=== PATIENT | female | born 1960 | race Hispanic/Latino ===

== ENCOUNTER → 2019-09-20 | Day surgery (SDC) | payer MEDICARE, OTHER ==
[2019-09-17 13:15] LABS: BASOPHILS % 0.8 % (0.0-1.0); EOSINOPHILS # (AUTO) 0.1 (0.0-0.4); EOSINOPHILS % 2.4 % (0.0-6.0); HEMATOCRIT 34.6 % (34.2-44.1); HEMOGLOBIN 11.5 g/dL (12.0-16.0); LYMPHOCYTES # (AUTO) 1.2 (1.0-3.2); MEAN CORPUSCULAR HEMOGLOBIN 29.7 pg (28-32); MEAN CORPUSCULAR HGB CONC 33.2 g/dL (31-35); MEAN CORPUSCULAR VOLUME 89.4 fL (81-99); MONOCYTES # (AUTO) 0.4 (0.2-0.8); MONOCYTES % 8.1 % (4.4-11.3); NEUTROPHILS # (AUTO) 3.1 (2.1-6.9); NEUTROPHILS % 63.3 % (38.7-80.0); PLATELET COUNT 262 x10e3/uL (140-360); RED BLOOD COUNT 3.87 x10e6/uL (3.6-5.1); RED CELL DISTRIBUTION WIDTH 11.9 % (11.7-14.4)
[2019-09-17 13:31] LABS: INR 0.88; PROTHROMBIN TIME 12.5 seconds (11.9-14.5)
[2019-09-17 13:32] LABS: PARTIAL THROMBOPLASTIN TIME 24.4 seconds (23.8-35.5)
[2019-09-17 13:45] LABS: ANION GAP 13.9 mmol/L (8-16); CALCIUM 8.7 mg/dL (8.4-10.2); CREATININE, SERUM 1.16 mg/dL (0.57-1.11); POTASSIUM 4.9 mmol/L (3.5-5.1)
[~2019-09-20] MED LIST: ACETAMINOPHEN 1000 MG/100 ML IV ONE; ALENDRONATE SOD70 MG PO; AMITRIPTYLINE H25 MG PO; BIOTIN5000 MC1 PO; CALTRATE 600 W1 EACH PO; CEFAZOLIN SOD 1 GM/NS 50ML 100 ML IV ONE; DEXAMETHASONE SOD PHOS INJ 4 MG/ML VIAL ONE; DICLOFENAC SOD100 GM TOP; ENALAPRIL MALE2.5 MG PO; ENALAPRIL PO; EPHEDRINE SULFATE INJ 50 MG/ML VIAL ONE; EPINEPHRINE 1 MG/ML 30ML VIAL ONE; ETOMIDATE 2 MG/ML 10 ML INJ IV ONE; FEOSOL325 MG PO; GLYCOPYRROLATE INJ 0.2 MG/ML VIAL ONE; HUMALOG100 UNIT/3 SC; INVOKANA PO; KETOROLAC TROMETHAMINE 30 MG/ML VIAL ONE; LANTUS100 UNITS/ SQ; LEVOCETIRIZINE D5 MG PO; LEVOTHYROXINE50 MCG PO; LIDOCAINE HCL 2% LOCAL INJ 5 ML SDV VIAL INJ ONE; MECLIZINE HCL12.5 MG PO; METFORMIN HCL500 MG PO; METFORMIN PO; MONTELUKAST SOD10 MG PO; NEOSTIGMINE 1 MG/ML 10ML VIAL ONE; NORCO 10-325 T1 EACH PO; NORCO 5-325 TA1 EACH PO; OMEGA 3 PO; ONDANSETRON HCL INJ 2MG/ML 2ML 2 MG/ML VIAL ONE; PANTOPRAZOLE SO20 MG PO; PLAQUENIL200 MG PO; PLAVIX75 MG PO; PROPOFOL IV EMULSION 10 MG/ML 20 ML VIAL ONE; RESTASIS1 EACH OP; ROCURONIUM BROMIDE 10 MG/ML 5ML VIAL IV ONE; ROZEREM8 MG PO; SEVOFLURANE INHAL SOLN 250 ML PEN BTL ONE; SIMVASTATIN PO; SIMVASTATIN40 MG PO; SPIRONOLACTONE25 MG PO; SYNTHROID PO; VENLAFAXINE HCL75 MG PO; VESICARE10 MG PO; VIT B12 PO; VIT D PO
[2019-09-20 09:44] VITALS: BP 110/74
--- NOTE | 2019-09-20 14:02 | Operative Report ---
DATE OF PROCEDURE: 09/20/2019 SURGEON: NATASHA FRAZIER MD LOCATION: Place of surgery is [facility]. HISTORY: Ms. 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 The patient wished to forgo any further conservative management and proceed along with a diagnostic arthroscopy of the right shoulder. The risks and benefits of surgery have been made known to her, consisting but not limited to following; infection, blood loss, nerve, blood vessel or tendon injury, DVT, ongoing pain and stiffness. Informed consent was obtained. The risks and benefits were discussed with the patient in the preop holding area again. The right shoulder was marked. The patient received a regional block per Anesthesia and then brought back to the operative suite. Time-out was taken for Ms. Charo Martinez for a right shoulder arthroscopy. All were in agreement including nursing staff, anesthesia, and myself. The patient was then given a successful general intubation anesthetic and then transferred over to the operative table. The patient was placed in the beach chair position allowing full exposure of the right shoulder and upper extremity. The right shoulder was then sterilely prepped and draped in the usual standard fashion. The shoulder was inflated with 20-30 mL of sterile saline. A 15-Bard Ld blade was used to make the posterior portal approach. A blunt trocar was inserted. Upon immediate examination of the anterior compartment, the patient has significant type 2 labral tear with marked fraying of the edges. The labrum was completely detached from the glenoid from the 1 down to the 5 to 6 o'clock position. Two anterior working portals were made and two orange trocars were inserted. The patient's liver edges were debrided. The patient also had marked amount of villonodular synovitis, specifically around the labrum and the biceps tendon. An arthroscopic synovectomy was carried out removing the villonodular synovitis. This was done through the anterior as well as the posterior portal, removing the synovitis along the posterior compartment as well as a lateral portal was made to complete the synovectomy of the shoulder joint. Attention was then turned back to the labral tear. The glenoid bed was abraded with a hand rasp. Upon which time, 3 Arthrex labral sutures were passed through, one at the 1 o'clock position, the 2nd one at 3 o'clock and the 3rd one around 5 o'clock position. A protective drill guide was then placed and then drill holes were drilled for preparation for the knotless anchors. The knotless anchors were then reattached to lay back down respectively at the 1, 3, and lastly 5 o'clock position. The labral bumper was reestablished. Upon range of motion testing, the shoulder was found to be stable. The posterior labrum was found to be intact, once again the synovectomy being completed of the posterior compartment previously. Attention was then turned to the rotator cuff tear. The patient had a complete tear with mild retraction close to the bony insertion. I went ahead and abraded the tear as well. Attention was then turned to the subacromial space. The patient had marked impingement with AC arthrosis of the joint as well. Upon which time, through both the posterior and lateral portals, an arthroscopic subacromial decompression i.e., acromioplasty was completed using the 4.0 bur and shaver. Attention was then redirected to the distal clavicle and the degenerative AC meniscus. An arthroscopic distal clavicle resection i.e., Fabian procedure was carried out using the same 4.0 bur and shaver removing the degenerative AC meniscus as well. Copious irrigation was carried of the entire joint. There was significant marked improvement of the subacromial space. Attention was then redirected back to the tear itself. The tear was localized and a small incision was made directly over the tear. A blunt dissection was carried down through the part of deltoid. Anterior and lateral deltoid were resected and tagged for later repair. The rotator cuff tear was identified. Again, it was close to the bony insertion with mild retraction. I went ahead and abraded the footprint of the original insertion with a hand rasp. Copious irrigation carried out. Upon which time, two Mitek 6.5 Healix anchors were deployed and the two pairs of sutures were passed through the rotator cuff tendon. While maintaining appropriate abduction, the rotator cuff tear was then tied back down to the ridge of bony insertion and the repair was found to be very stable. Upon passive range of motion of the shoulder, the repair found to be very stable. There was no instability of the shoulder joint, glenohumeral joint throughout all range of motion. The shoulder was then irrigated out. The anterolateral deltoid fibers were reapproximated back to the bony insertion with 1 Ethibond, deep layer was closed using 1 Ethibond, 0 Vicryl, and 2-0 Vicryl. Skin was reapproximated with cherise and the patient is placed in Xeroform compressive dressing in conjunction with a shoulder abduction immobilizer and then successfully extubated and transferred to PACU in stable condition. PREOPERATIVE DIAGNOSES: 1. Right shoulder labral tear. 2. Right shoulder rotator cuff tear. 3. Right shoulder impingement, AC arthrosis. POSTOPERATIVE DIAGNOSES: 1. Right shoulder type 2 labral tear. 2. A complete rotator cuff tear of the right shoulder to include the supraspinatus and infraspinatus. 3. Villonodular synovitis of the right shoulder. 4. Right shoulder impingement, AC arthrosis. PROCEDURES: 1. Diagnostic arthroscopy of the right shoulder with a type 2 labral repair with 2 Arthrex 2.9 labral anchors. 2. Arthroscopic subacromial decompression i.e., acromioplasty. 3. Arthroscopic distal clavicle resection i.e., Fabian procedure. 4. Arthroscopic synovectomy for villonodular synovitis. 5. A mini open rotator cuff repair of the right shoulder with the use of 2 Mitek Healix anchors. ANESTHESIA: Regional block and general intubation anesthetic. ESTIMATED BLOOD LOSS: Less than 10 mL. SPECIMENS: Bones, soft tissues, and villonodular synovitis. COMPLICATIONS: None. CONDITION: Stable to PACU. The patient was seen in PACU. Dressings were clean and dry. Capillary refills were brisk. The patient's pain is well controlled. The intraoperative findings were reviewed and discussed with the patient's daughter. Discharge and wound care instructions were given to her. The patient is to be maintained in a shoulder immobilizer at all times, only removing for bathing or showering. She is asked to use a large roll bath towel when she has taken shower to maintain the shoulder at abduction. She is to continue aggressive icing. She is discharged home with Keflex as well as Mesick. The patient was asked to follow up in the [facility]opedic [facility] in 12-14 days for wound check and staple removal. Again, the patient is seen in PACU. Dressing clean and dry. Capillary refills are brisk. Pain is well controlled. Discharge wound care instructions were also discussed with nursing staff. MD ELHAM STOCK/ROXANN /[id number]
== END | disposition home or self-care (01) ==
LOC: OR 05:10
PROVIDERS: ATTEND Orthopaedic Surgery
DX: S43.421A Sprain of right rotator cuff capsule, initial encounter (principal); S43.431A Superior glenoid labrum lesion of right shoulder, initial encounter; M75.51 Bursitis of right shoulder; M19.011 Primary osteoarthritis, right shoulder; M43.02 Spondylolysis, cervical region; M50.320 Other cervical disc degeneration, mid-cervical region, unspecified level; M25.531 Pain in right wrist; E66.09 Other obesity due to excess calories; E11.42 Type 2 diabetes mellitus with diabetic polyneuropathy; R06.02 Shortness of breath; I10 Essential (primary) hypertension; E78.5 Hyperlipidemia, unspecified; K21.9 Gastro-esophageal reflux disease without esophagitis; X58.XXXA Exposure to other specified factors, initial encounter; Z01.810 Encounter for preprocedural cardiovascular examination; Z01.812 Encounter for preprocedural laboratory examination; Z11.59 Encounter for screening for other viral diseases; Z79.02 Long term (current) use of antithrombotics/antiplatelets; Z79.84 Long term (current) use of oral hypoglycemic drugs; Z79.4 Long term (current) use of insulin; Z68.31 Body mass index [BMI] 31.0-31.9, adult
CPT/HCPCS: 23410; 29807; 29824; 36415 ×2; 80048; 82948; 85025; 85610; 85730; 93005; C1713 ×2; J0131; J0690; J1100; J1885; J2001; J2405; J2704; J2710; U0002

== ENCOUNTER → 2020-12-30 | Outpatient (CLI) | payer MEDICARE ==
[~2020-12-30] MED LIST changes: -ACETAMINOPHEN 1000 MG/100 ML IV ONE; -CEFAZOLIN SOD 1 GM/NS 50ML 100 ML IV ONE; -DEXAMETHASONE SOD PHOS INJ 4 MG/ML VIAL ONE; -EPHEDRINE SULFATE INJ 50 MG/ML VIAL ONE; -EPINEPHRINE 1 MG/ML 30ML VIAL ONE; -ETOMIDATE 2 MG/ML 10 ML INJ IV ONE; -GLYCOPYRROLATE INJ 0.2 MG/ML VIAL ONE; -KETOROLAC TROMETHAMINE 30 MG/ML VIAL ONE; -LIDOCAINE HCL 2% LOCAL INJ 5 ML SDV VIAL INJ ONE; -NEOSTIGMINE 1 MG/ML 10ML VIAL ONE; -ONDANSETRON HCL INJ 2MG/ML 2ML 2 MG/ML VIAL ONE; -PROPOFOL IV EMULSION 10 MG/ML 20 ML VIAL ONE; -ROCURONIUM BROMIDE 10 MG/ML 5ML VIAL IV ONE; -SEVOFLURANE INHAL SOLN 250 ML PEN BTL ONE
== END ==
LOC: MRI 10:56
PROVIDERS: ATTEND Podiatrist Foot & Ankle Surgery
DX: M76.72 Peroneal tendinitis, left leg (principal)

== ENCOUNTER 2023-10-03 10:27 | Inpatient (IN) | payer MEDICARE, OTHER ==
[2023-09-28 11:53] LABS: BASOPHILS % 0.7 % (0.0-1.0); EOSINOPHILS # (AUTO) 0.3 (0.0-0.4); EOSINOPHILS % 4.1 % (0.0-6.0); HEMATOCRIT 36.2 % (34.2-44.1); HEMOGLOBIN 12.3 g/dL (12.0-16.0); LYMPHOCYTES # (AUTO) 2.1 (1.0-3.2); LYMPHOCYTES % 34.3 % (18.0-39.1); MEAN CORPUSCULAR HEMOGLOBIN 30.6 pg (28-32); MONOCYTES # (AUTO) 0.5 (0.2-0.8); MONOCYTES % 7.5 % (4.4-11.3); NEUTROPHILS # (AUTO) 3.2 (2.1-6.9); NEUTROPHILS % 52.7 % (38.7-80.0); PLATELET COUNT 266 x10e3/uL (140-360); RED BLOOD COUNT 4.02 x10e6/uL (3.6-5.1); RED CELL DISTRIBUTION WIDTH 11.6 % (11.7-14.4); WHITE BLOOD COUNT 6.04 x10e3/uL (4.8-10.8)
[2023-09-28 12:06] LABS: ANION GAP 15.7 mmol/L (8-16); CALCIUM 9.9 mg/dL (8.4-10.2); CREATININE, SERUM 1.26 mg/dL (0.57-1.11); POTASSIUM 4.7 mmol/L (3.5-5.1)
[~2023-10-03] VITALS: Ht 162.6 cm; Wt 87.1 kg
[~2023-10-03 10:27] MED LIST changes: +ACETAMINOPHEN325 M1 PO; +ACETAZOLAMIDE500 M1 PO; +AMITIZA24 MCG PO; +BACITRACIN ZINC 15 GM OINT ONE; +BUPIVACAINE HCL 0.5% INJ 30 ML VIAL INJ ONE; +CRESTOR40 MG PO; +FAMOTIDINE20 MG PO; +FIASP 100100 UNIT/1; +GENTAMICIN SULFATE 40 MG/ML 2 ML VIAL ONE; +IOPAMIDOL 610MG/1ML 300 MG/ML VIAL IV ONE; +JANUVIA100 MG PO; +LIDOCAINE 2%/ EPINEPHRINE 20ML MDV ONE; +LYRICA100 MG PO; +TOUJEO MAX300 UNIT/1 SQ; +TOUJEO SOL300 UNIT/1 SQ; +TRICOR145 MG PO; +TRULICITY4.5 MG/0.5
[2023-10-03] MEDS: GENTAMICIN 80MG/NS 100 ML 200 ML IV ONE (11:24)
[2023-10-03] MEDS: LACTATED RINGER'S 1,000 ML ONE (11:30)
[2023-10-03] MEDS: PIPERACILLIN/TAZOBACTAM 3.375 GM VIAL ONE (11:31)
[2023-10-03] MEDS: CLINDAMYCIN 600MG / 50ML 50 ML IV ONE (11:32)
[2023-10-03] MEDS ORDERED: ONDANSETRON HCL INJ 2MG/ML 2ML 2 MG/ML VIAL ONE (11:56)
[2023-10-03] MEDS ORDERED: PROPOFOL IV EMULSION 10 MG/ML 20 ML VIAL ONE (11:56)
[2023-10-03] MEDS ORDERED: SUCCINYLCHOLINE CHLORIDE 20 MG/ML 10ML VIAL ONE ×2 (11:56→12:34)
[2023-10-03] MEDS ORDERED: DEXAMETHASONE SOD PHOS INJ 4 MG/ML SDV ONE (11:56)
[2023-10-03] MEDS ORDERED: LIDOCAINE HCL 2% LOCAL INJ 5 ML SDV VIAL INJ ONE (11:56)
[2023-10-03] MEDS ORDERED: SEVOFLURANE INHAL SOLN 250 ML PEN BTL ONE (11:56)
[2023-10-03] MEDS ORDERED: ROCURONIUM BROMIDE 10 MG/ML 5ML VIAL IV ONE (11:56)
[2023-10-03] MEDS ORDERED: ACETAMINOPHEN 1000 MG/100 ML IV ONE (11:56)
[2023-10-03] MEDS ORDERED: LIDOCAINE 2%/ EPINEPHRINE 20ML MDV ONE (12:24)
[2023-10-03] MEDS ORDERED: GENTAMICIN SULFATE 40 MG/ML 2 ML VIAL ONE (12:24)
[2023-10-03] MEDS ORDERED: BACITRACIN ZINC 15 GM OINT ONE (12:25)
[2023-10-03] MEDS ORDERED: BUPIVACAINE HCL 0.5% INJ 30 ML VIAL INJ ONE (12:25)
[2023-10-03] MEDS ORDERED: IOPAMIDOL 610MG/1ML 300 MG/ML VIAL IV ONE (12:25)
[2023-10-03] MEDS ORDERED: METHYLENE BLUE 1% INJ 10 ML VIAL INJ ONE (12:25)
[2023-10-03] MEDS ORDERED: FENTANYL CITRATE/PF 100MCG/2 ML INJ ONE (12:29)
[2023-10-03] MEDS ORDERED: ACETAMINOPHEN 1000 MG/100 ML 200 ML IV ONE (12:34)
[2023-10-03] MEDS ORDERED: SUGAMMADEX SODIUM 200 MG/2 ML VIAL IV ONE (12:34)
[2023-10-03] MEDS ORDERED: ONDANSETRON HCL INJ 2MG/ML 2ML 2 MG/ML VIAL IV PRN ×2 (16:00→17:15)
[2023-10-03] MEDS ORDERED: PHENAZOPYRIDINE HCL 100 MG TAB PO PRN (16:00)
[2023-10-03] MEDS ORDERED: DIPHENHYDRAMINE HCL 25 MG CAP PO PRN ×2 (16:00→17:15)
[2023-10-03] MEDS ORDERED: ACETAMINOPHEN/CODEINE 300MG - 30MG TAB PO PRN (16:00)
[2023-10-03 16:45] VITALS: BP 108/59; PULSE 80; RESP 14; TEMP 97.8; O2SAT 94
[2023-10-03 17:06] VITALS: BP 95/53; PULSE 82; RESP 16; TEMP 97.7; O2SAT 93
[2023-10-03] MEDS ORDERED: DEXTROSE 50% SYRINGE 50 ML IV PRN ×2 (17:15→18:45)
[2023-10-03] MEDS ORDERED: LIDOCAINE 4% PATCH TP PRN (17:15)
[2023-10-03] MEDS ORDERED: DOCUSATE SODIUM 100 MG CAP PO PRN (17:15)
[2023-10-03] MEDS ORDERED: SIMETHICONE 80 MG CHEW PO PRN (17:15)
[2023-10-03] MEDS ORDERED: MELATONIN 5 MG TABLET PO PRN (17:15)
[2023-10-03] MEDS ORDERED: BENZONATATE 100 MG CAP PO PRN (17:15)
[2023-10-03] MEDS ORDERED: ACETAMINOPHEN 325 MG TAB PO PRN (17:15)
[2023-10-03] MEDS ORDERED: ALBUTEROL/IPRATROPIUM 3 ML NEB NEB PRN (17:15)
[2023-10-03] MEDS ORDERED: HYDRALAZINE HCL 20 MG/ML VIAL IV PRN (17:15)
[2023-10-03] MEDS: SODIUM CHLORIDE 0.9% 1000ML 1,000 ML IV SCH (17:30)
[2023-10-03] MEDS: SENNA-S TABLET PO SCH (17:31)
[2023-10-03] MEDS: FLUCONAZOLE 200 MG/100 ML 100 ML IV SCH (17:31)
[2023-10-03] MEDS ORDERED: ACETAMINOPHEN 1000 MG/100 ML IV PRN (18:00)
[2023-10-03 19:13] VITALS: PULSE 80; RESP 16; O2SAT 98
[2023-10-03 19:57] VITALS: BP 116/56; PULSE 84; RESP 18; TEMP 98.2; O2SAT 95
[2023-10-03] MEDS: INSULIN LISPRO 100 UNIT/1 ML 3ML VIAL SQ SCH (20:20)
[2023-10-03 21:17] VITALS: BP 116/56; PULSE 84; RESP 18; TEMP 98.2; O2SAT 95
[2023-10-03 23:39] VITALS: BP 116/60; PULSE 81; RESP 18; TEMP 98; O2SAT 97
[2023-10-04] VITALS (10 sets, daily range): BP systolic 110–123; BP diastolic 53–65; PULSE 74–84; RESP 18–22; TEMP 97.9–98.5; O2SAT 94–99
[2023-10-04 05:12] LABS: BASOPHILS % 0.2 % (0.0-1.0); HEMATOCRIT 33.1 % (34.2-44.1); HEMOGLOBIN 11.1 g/dL (12.0-16.0); LYMPHOCYTES # (AUTO) 1.1 (1.0-3.2); LYMPHOCYTES % 10.1 % (18.0-39.1); MEAN CORPUSCULAR HEMOGLOBIN 30.5 pg (28-32); MEAN CORPUSCULAR HGB CONC 33.5 g/dL (31-35); MEAN CORPUSCULAR VOLUME 90.9 fL (81-99); MONOCYTES # (AUTO) 0.7 (0.2-0.8); MONOCYTES % 5.8 % (4.4-11.3); NEUTROPHILS # (AUTO) 9.4 (2.1-6.9); NEUTROPHILS % 83.4 % (38.7-80.0); PLATELET COUNT 267 x10e3/uL (140-360); RED BLOOD COUNT 3.64 x10e6/uL (3.6-5.1); RED CELL DISTRIBUTION WIDTH 11.4 % (11.7-14.4); WHITE BLOOD COUNT 11.29 x10e3/uL (4.8-10.8)
[2023-10-04 08:07] LABS: ANION GAP 14.2 mmol/L (8-16); CALCIUM 8.7 mg/dL (8.4-10.2); CREATININE, SERUM 1.44 mg/dL (0.57-1.11)
[2023-10-04 08:11] LABS: POTASSIUM 5.2 mmol/L (3.5-5.1)
[2023-10-04] MEDS: FUROSEMIDE INJ 10 MG/ML 2 ML VIAL IV ONE (09:34)
[2023-10-05] VITALS (7 sets, daily range): BP systolic 115–136; BP diastolic 60–73; PULSE 73–85; RESP 16–18; TEMP 98.1–98.6; O2SAT 94–99
[2023-10-05 05:28] LABS: BASOPHILS % 0.3 % (0.0-1.0); EOSINOPHILS # (AUTO) 0.2 (0.0-0.4); EOSINOPHILS % 1.7 % (0.0-6.0); HEMATOCRIT 32.2 % (34.2-44.1); HEMOGLOBIN 10.8 g/dL (12.0-16.0); LYMPHOCYTES # (AUTO) 2.6 (1.0-3.2); LYMPHOCYTES % 29.4 % (18.0-39.1); MEAN CORPUSCULAR HEMOGLOBIN 30.5 pg (28-32); MEAN CORPUSCULAR HGB CONC 33.5 g/dL (31-35); MONOCYTES # (AUTO) 0.6 (0.2-0.8); MONOCYTES % 6.6 % (4.4-11.3); NEUTROPHILS # (AUTO) 5.4 (2.1-6.9); NEUTROPHILS % 61.5 % (38.7-80.0); PLATELET COUNT 255 x10e3/uL (140-360); RED BLOOD COUNT 3.54 x10e6/uL (3.6-5.1); RED CELL DISTRIBUTION WIDTH 11.6 % (11.7-14.4); WHITE BLOOD COUNT 8.81 x10e3/uL (4.8-10.8)
[2023-10-05 06:02] LABS: ANION GAP 14.1 mmol/L (8-16); CALCIUM 9.2 mg/dL (8.4-10.2); CREATININE, SERUM 1.3 mg/dL (0.57-1.11); POTASSIUM 4.1 mmol/L (3.5-5.1)
[2023-10-05] MEDS ORDERED: ONDANSETRON HCL 4 MG ORAL DISINTEGRATING TAB PO PRN (13:45)
== END 2023-10-05 20:35 | disposition home or self-care (01) | DRG 748 ==
LOC: OR 10:27 → PACU V 14:25 → MED/SURG 17:03
PROVIDERS: ADMIT Internal Medicine; ATTEND Internal Medicine
PROC: 0TSD0ZZ Reposition Urethra, Open Approach (ICD-10-PCS; 2023-10-03)
PROC: 0WUF0KZ Supplement Abdominal Wall with Nonautologous Tissue Substitute, Open Approach (ICD-10-PCS; 2023-10-03)
PROC: BT141ZZ Fluoroscopy of Kidneys, Ureters and Bladder using Low Osmolar Contrast (ICD-10-PCS; 2023-10-03)
PROC: 0TJB8ZZ Inspection of Bladder, Via Natural or Artificial Opening Endoscopic (ICD-10-PCS; 2023-10-03)
PROC: 0T9B70Z Drainage of Bladder with Drainage Device, Via Natural or Artificial Opening (ICD-10-PCS; 2023-10-03)
PROC: 0JQC0ZZ Repair Pelvic Region Subcutaneous Tissue and Fascia, Open Approach (ICD-10-PCS; principal; 2023-10-03 13:38)
DX: N81.10 Cystocele, unspecified (principal); N39.0 Urinary tract infection, site not specified; E11.22 Type 2 diabetes mellitus with diabetic chronic kidney disease; I12.9 Hypertensive chronic kidney disease with stage 1 through stage 4 chronic kidney disease, or unspecified chronic kidney disease; E78.5 Hyperlipidemia, unspecified; B96.20 Unspecified Escherichia coli [E. coli] as the cause of diseases classified elsewhere; E66.01 Morbid (severe) obesity due to excess calories; R31.9 Hematuria, unspecified; N18.9 Chronic kidney disease, unspecified; Z68.33 Body mass index [BMI] 33.0-33.9, adult; Z79.84 Long term (current) use of oral hypoglycemic drugs; Z79.890 Hormone replacement therapy
CPT/HCPCS: 36415; 74420; 80048; 82948; 85025; 87086; 87186; 94799; 99252; C1758; C1762; J0330; J1100; J1450; J1580; J1940; J2001; J2405; J2543; J7030

== ENCOUNTER → 2023-12-09 | Outpatient (REF) | payer MEDICARE, OTHER ==
[~2023-12-09] MED LIST changes: -BACITRACIN ZINC 15 GM OINT ONE; -BUPIVACAINE HCL 0.5% INJ 30 ML VIAL INJ ONE; -GENTAMICIN SULFATE 40 MG/ML 2 ML VIAL ONE; -IOPAMIDOL 610MG/1ML 300 MG/ML VIAL IV ONE; -LIDOCAINE 2%/ EPINEPHRINE 20ML MDV ONE
== END ==
LOC: US 10:39
PROVIDERS: ATTEND Nurse Practitioner Family
DX: E03.9 Hypothyroidism, unspecified (principal)
CPT/HCPCS: 76536

== ENCOUNTER → 2024-09-21 | Day surgery (SDC) | payer MEDICARE ==
[2024-09-19 11:29] LABS: BASOPHILS % 0.9 % (0.0-1.0); EOSINOPHILS % 3.4 % (0.0-6.0); LYMPHOCYTES % 29.9 % (18.0-39.1); MONOCYTES % 6.7 % (4.4-11.3); NEUTROPHILS % 58.8 % (38.7-80.0); RED CELL DISTRIBUTION WIDTH 12.3 % (11.7-14.4)
[2024-09-19 12:00] LABS: EST GLOMERULAR FILTRATION RATE 49.0 ML/MIN (>=60)
[~2024-09-21] MED LIST changes: +ALDACTONE100 MG PO; +CLOTRIMAZOLE-BE15 GM TOP; +DEXAMETHASONE SOD PHOS INJ 4 MG/ML SDV ONE; +EMGALITY P120 MG/1 M SQ; +EPHEDRINE SULFATE INJ 50 MG/ML VIAL ONE; +FAMOTIDINE 20 MG/2 ML VIAL IV ONE; +FENTANYL CITRATE/PF 100MCG/2 ML INJ ONE; +FLUOCINONIDE-E15 GM TOP; +GLYCOPYRROLATE INJ 0.2 MG/ML VIAL ONE; +HYDROCODON-ACE1 EAC9 PO; +INSULIN LISPRO SQ; +IPRATROPIUM BRO30 ML; +LEVOTHYROXINE75 MCG PO; +LIDOCAINE HCL 2% LOCAL INJ 5 ML SDV VIAL INJ ONE; +LINZESS290 MCG PO; +MIDAZOLAM HCL 2 MG/2 ML VIAL ONE; +MYRBETRIQ25 MG PO; +NEURONTIN100 MG PO; +OMEGA 3 1,0001 EACH PO; +ONDANSETRON HCL INJ 2MG/ML 2ML 2 MG/ML VIAL ONE; +ONDANSETRON ODT4 MG PO; +ONDANSETRON ODT8 MG PO; +OZEMPIC1 MG/0.71; +PROPOFOL IV EMULSION 10 MG/ML 20 ML VIAL ONE
[2024-09-21] MEDS: SODIUM CHLORIDE 0.9% 1000ML 1,000 ML ONE (11:26)
[2024-09-21] MEDS: CEFTRIAXONE 1 GM VIAL ONE (11:27)
[2024-09-21] MEDS: GENTAMICIN 80MG/NS 100 ML 100 ML IV ONE (11:28)
[2024-09-21 14:07] VITALS: TEMP 97.8
[2024-09-21] MEDS: PHENAZOPYRIDINE HCL 100 MG TAB ONE (14:38)
[2024-09-21 15:00] VITALS: BP 113/55; PULSE 84; RESP 15; O2SAT 97
== END | disposition home or self-care (01) ==
LOC: OR 11:07
PROVIDERS: ATTEND Urology
DX: N20.1 Calculus of ureter (principal); N39.0 Urinary tract infection, site not specified; N81.10 Cystocele, unspecified; N36.41 Hypermobility of urethra; N81.6 Rectocele; N95.2 Postmenopausal atrophic vaginitis; N32.89 Other specified disorders of bladder; G47.33 Obstructive sleep apnea (adult) (pediatric); I10 Essential (primary) hypertension; E78.5 Hyperlipidemia, unspecified; E11.9 Type 2 diabetes mellitus without complications; K21.9 Gastro-esophageal reflux disease without esophagitis; Z01.810 Encounter for preprocedural cardiovascular examination; Z01.812 Encounter for preprocedural laboratory examination; Z01.818 Encounter for other preprocedural examination; Z79.84 Long term (current) use of oral hypoglycemic drugs; Z79.85 Long-term (current) use of injectable non-insulin antidiabetic drugs; Z79.4 Long term (current) use of insulin; Z79.899 Other long term (current) drug therapy
CPT/HCPCS: 36415 ×2; 52005; 71046; 74420; 80048; 82948; 84550; 85025; 87086; 93005; C1758; J0696; J1100; J1308; J1580; J2003; J2405; J2704; J3010; J7030; J2250